=== PATIENT | male | born 1980 | race Asian ===

== ENCOUNTER 2016-09-18 02:46 | Emergency (ER) | payer OTHER ==
[~2016-09-18] VITALS: Ht 180.3 cm; Wt 86.3 kg
[2016-09-18 03:45] LABS: HEMATOCRIT 47.1 % (38.0-50.0); MCH 29.5 PG (29.0-34.0); MCHC 35.2 G/DL (30.0-36.0); MCV 83.8 FL (86-99); MEAN PLAT.VOLUME 9.1 uM^3 (9.0-12.4); PLATELET COUNT 398 K/uL (156-360); RBC DIS.WIDTH-CV 12.4 % (11.8-14.6); RBC DIS.WIDTH-SD 37.5 % (39-53); RED BLOOD COUNT 5.62 M/uL (4.00-5.50); WHITE BLOOD COUNT 7.2 K/uL (4.1-10.2)
[2016-09-18 03:56] LABS: CHLORIDE 103 mEq/L (99-109); POTASSIUM 3.2 mEq/L (3.7-5.4); SODIUM 138 mEq/L (136-147)
[2016-09-18 03:57] LABS: GLUCOSE 111 mg/dL (70-99)
[2016-09-18 03:59] LABS: ANION GAP 13 MEQ/L (2-14)
[2016-09-18 04:01] LABS: GFR ESTIMATE (CALCULATED) > 59 mL/min/
[2016-09-18 04:02] LABS: UREA NITROGEN (BUN) 16 mg/dL (9-23)
[2016-09-18] MEDS ORDERED: ATIVAN1 MG PO (05:08)
[2016-09-18 05:24] VITALS: BP 134/91
== END 2016-09-18 05:25 | disposition home or self-care (01) ==
LOC: EME 02:46
DX: J45.909 Unspecified asthma, uncomplicated (principal); F41.1 Generalized anxiety disorder
CPT/HCPCS: 71020; 80048; 85027; 93005; 94640; 99281; 99284